=== PATIENT | female | born 1970 | race Caucasian/White ===

== ENCOUNTER 2018-11-27 10:00 | Inpatient (IN) | payer OTHER ==
[~2018-11-27] VITALS: Ht 162.6 cm; Wt 38.6 kg
[~2018-11-27 10:00] MED LIST: CLONAZEPAM0.5 MG PO; CLONAZEPAM1 MG PO; COLACE100 MG PO; Colace 100MG PO; DEMEROL; NEURONTIN; NEURONTIN PO; NEXIUM; NORCO 10-325 TA1 TAB PO; ORPH100T PO; PHENERGAN25 MG; Pepcid 20 MG TABLET PO; TYLENOL-CODEINE1 TAB PO; Zolpidem Tartrate 10MG PO
[2018-11-29] MEDS ORDERED: WELLBUTRIN SR150 MG PO (13:21)
[2018-11-29] MEDS ORDERED: SIMPONI100 MG/11 (13:22)
[2018-11-29] MEDS ORDERED: MINIVELLE1 EAC1 TD (13:22)
[2018-11-29] MEDS ORDERED: PHENERGAN25 MG PO (13:23)
[2018-12-07] MEDS ORDERED: NEURONTIN800 MG PO (11:55)
[2019-01-10] MEDS ORDERED: LIDODERM1 EACH TOP (12:48)
[2019-01-10] MEDS ORDERED: NEURONTIN300 MG PO (12:48)
[2019-01-10] MEDS ORDERED: PROMETHAZI25 MG/1 M1 IM (12:50)
[2019-01-10] MEDS ORDERED: PHENERGAN25 MG/1 M1 IM (12:52)
== END 2019-01-10 15:07 | disposition home or self-care (01) | DRG 330 ==
LOC: SURH 12-06 07:00 → SURG 12-06 07:26 → O/R 12-06 07:26 → SURH 12-06 11:45 → SURG 12-06 17:03 → SURH 12-07 14:29
PROVIDERS: ADMIT Surgery
PROC: 0DHA3UZ Insertion of Feeding Device into Jejunum, Percutaneous Approach (ICD-10-PCS; 2018-12-06)
PROC: 0DNA4ZZ Release Jejunum, Percutaneous Endoscopic Approach (ICD-10-PCS; 2018-12-06)
PROC: 3E0436Z Introduction of Nutritional Substance into Central Vein, Percutaneous Approach (ICD-10-PCS; 2018-12-09)
PROC: BD13ZZZ Fluoroscopy of Small Bowel (ICD-10-PCS; 2018-12-21)
PROC: B246ZZZ Ultrasonography of Right and Left Heart (ICD-10-PCS; 2018-12-26)
PROC: 0D1A4ZA Bypass Jejunum to Jejunum, Percutaneous Endoscopic Approach (ICD-10-PCS; principal; 2019-01-01 18:00)
DX: K56.51 Intestinal adhesions [bands], with partial obstruction (principal); N39.0 Urinary tract infection, site not specified; E46 Unspecified protein-calorie malnutrition; R78.81 Bacteremia; R65.10 Systemic inflammatory response syndrome (SIRS) of non-infectious origin without acute organ dysfunction; D62 Acute posthemorrhagic anemia; R11.2 Nausea with vomiting, unspecified; B96.89 Other specified bacterial agents as the cause of diseases classified elsewhere; F41.8 Other specified anxiety disorders; R50.82 Postprocedural fever; E87.6 Hypokalemia; K22.4 Dyskinesia of esophagus; R09.02 Hypoxemia; T80.89XA Other complications following infusion, transfusion and therapeutic injection, initial encounter; B95.7 Other staphylococcus as the cause of diseases classified elsewhere; K21.9 Gastro-esophageal reflux disease without esophagitis; M51.16 Intervertebral disc disorders with radiculopathy, lumbar region; L40.8 Other psoriasis; M06.89 Other specified rheumatoid arthritis, multiple sites

== ENCOUNTER 2019-08-27 04:53 | Day surgery (SDC) | payer OTHER ==
[~2019-08-27 04:53] MED LIST changes: +CARAFATE1 GM/10 ML PO; +LIDODERM1 EACH TOP; +MINIVELLE1 EAC1 TD; +NEURONTIN300 MG PO; +NEURONTIN800 MG PO; +PHENERGAN25 MG PO; +PHENERGAN25 MG/1 M1 IM; +PRILOSEC2.5 MG PO; +PROMETHAZI25 MG/1 M1 IM; +SIMPONI100 MG/11; +WELLBUTRIN SR150 MG PO
[2019-08-27] MEDS ORDERED: ULTRACET PO (08:44)
[2019-08-27] MEDS ORDERED: BACTRIM DS TAB1 EACH PO (08:45)
== END 2019-08-27 10:50 | disposition home or self-care (01) ==
LOC: CIR.AMB 04:53
DX: Z43.4 Encounter for attention to other artificial openings of digestive tract (principal)

== ENCOUNTER 2025-06-12 19:41 | Inpatient (IN) | payer OTHER ==
[~2025-06-12] VITALS: Ht 162.6 cm; Wt 40.8 kg
[~2025-06-12 19:41] MED LIST changes: +BACTRIM DS TAB1 EACH PO; +ULTRACET PO
--- NOTE | 2025-06-12 19:56 | NUR ---
PTE ALERTA Y ORIENTADA X3, SE AIDAN S/V. PTE REFIERE QUE PRESENTA VOMITOS, DIARREAS Y DOLOR ABDOMINAL. PTE REFIERE QUE SE COMUNICO CON [place] DR. ROSA VU QUIEN LE ORDENO QUE FUERA A ER. PTE REFIERE QUE IBA A TENER CIRUGIA EL 6 DE JUNUB. SE UBICA PTE EN MOLLY AREA DE OBSERVACION.
[2025-06-12] MEDS ORDERED: ONDANSETRON HCL 2 MG/ML VIAL IV ONE (20:15)
[2025-06-12] MEDS ORDERED: METHYLPREDNISOLONE SOD SUCC 40 MG VIAL IV ONE (20:15)
[2025-06-12] MEDS ORDERED: FAMOtidine 10 MG/ML (4ML VIAL) IV ONE (20:15)
[2025-06-12] MEDS ORDERED: MORPHINE SULFATE 4 MG/ML CARTRIDGE IV ONE ×2 (20:15→21:00)
[2025-06-12] MEDS ORDERED: 0.9 % SODIUM CHLORIDE 1,000 ML IV ONE (20:15)
[2025-06-12] MEDS ORDERED: DIPHENHYDRAMINE HCL 50 MG/ML VIAL 1ML IV ONE (20:15)
[2025-06-12] MEDS ORDERED: DIPHENHYDRAMINE HCL 50 MG/ML VIAL 1ML ONE (20:41)
[2025-06-12] MEDS ORDERED: ONDANSETRON HCL 2 MG/ML VIAL ONE (20:41)
[2025-06-12] MEDS ORDERED: METHYLPREDNISOLONE SOD SUCC 40 MG VIAL ONE (20:41)
[2025-06-12] MEDS ORDERED: FAMOTIDINE/PF 20 MG/2 ML VIAL ONE (20:42)
--- NOTE | 2025-06-12 21:04 | NUR ---
SE ORIENTA PTE SOBRE TRATAMIENTO MEDICO Y SE EJECUTA EN [place] TOTALIDAD
[2025-06-12 21:18] LABS: INR 0.99
[2025-06-12 21:32] LABS: URINE APPEARANCE Clear; URINE BILIRRUBIN Negative (NEGATIVE); URINE BLOOD Moderate; URINE COLOR Yellow; URINE GLUCOSE Negative (NEGATIVE); URINE KETONE 15 (NEGATIVE); URINE LEUKOCYTE Negative; URINE NITRATE Negative; URINE PROTEIN Negative (NEGATIVE); URINE UROBILINOGEN 1.0 E.U./dl
[2025-06-12 21:33] LABS: ALT/SGPT 19.0 U/L (12-78); AST/SGOT 21.0 U/L (15-37); BILIRUBIN TOTAL 2.04 mg/dL (0.3-1.2); BUN CREA RATIO 20.0 (7.0-25.0); CREATININE SERUM 0.59 mg/dL (0.55-1.02); GFR 105.82; GLOBULINA 2.9 G/DL (2.4-3.5); GLUCOSE FASTING 95.0 mg/dL (65-100); OSMOLALITY SERUM 285.0 MOSM/KG (275-295)
[2025-06-12 21:36] LABS: URINE BACTERIA 1135.0 uL (0.0-1933); URINE EPITHELIAL CELLS 20.4 uL (0.0-38.8); URINE RBC 120.4 uL (0.0-20.8); URINE WBC 10.0 uL (0.0-23.2)
[2025-06-12 22:13] LABS: URINE CAST 0.00 uL (0.0-1.40)
[2025-06-12 22:16] LABS: BASO % 0.7 % (0.1-1.2); EOS # 0.08 (0.04-0.54); EOS % 1.5 % (0.7-7.0); LYMPH # 2.02 (1.18-3.74); LYMPH % 37.0 % (19.3-53.1); MEAN PLATELET VOLUME 10.20 fl (9.4-12.4); MONO # 0.43 (0.24-0.82); MONO % 7.9 % (4.7-12.5); NEUT # 2.88 (1.56-6.13); NEUT % 52.7 % (34.0-71.1); RED CELL DISTRIBUTION WIDTH 11.9 % (11.6-14.4)
[2025-06-12] MEDS ORDERED: MORPHINE SULFATE 4 MG/ML CARTRIDGE IV PRN (23:45)
[2025-06-12] MEDS ORDERED: 0.9 % SODIUM CHLORIDE 1,000 ML IV SCH (23:45)
[2025-06-13] MEDS ORDERED: PIPERACILLIN/TAZOBACTAM SODIUM 3.375 GM VIAL IV SCH
[2025-06-13] MEDS ORDERED: DIPHENHYDRAMINE HCL 50 MG/ML VIAL 1ML IV ONE (08:00)
[2025-06-13] MEDS ORDERED: DIATRIZOATE MEGLUMINE, SODIUM 30 ML BOTTLE PO ONE (08:00)
[2025-06-13 08:25] VITALS: BP 102/68; O2SAT 96
[2025-06-13] MEDS ORDERED: FAMOtidine 10 MG/ML (4ML VIAL) IV SCH (09:00)
[2025-06-13] MEDS ORDERED: DIATRIZOATE MEGLUMINE, SODIUM 30 ML BOTTLE PO NR (10:00)
[2025-06-13] MEDS ORDERED: DEXTROSE 50 % IN WATER 0.5 G/ML VIAL IV PRN (15:30)
[2025-06-13] MEDS ORDERED: RINGERS SOLUTION,LACTATED 1,000 ML IV SCH (15:30)
[2025-06-13] MEDS ORDERED: ONDANSETRON HCL 2 MG/ML VIAL IV PRN (15:30)
[2025-06-13 16:00] VITALS: BP 113/80; O2SAT 96
[2025-06-13] MEDS ORDERED: AA 4.25%/CAL/LYTES/DEXT 5% 1,000 ML PERIFERAL SCH (17:00)
[2025-06-13 19:08] LABS: BUN CREA RATIO 18.0 (7.0-25.0); CHOL HDL RATIO 2.1 (0-5.0); CREATININE SERUM 0.51 mg/dL (0.55-1.02); GFR 125.2; GLUCOSE FASTING 89.0 mg/dL (65-100); HDL 76.0 mg/dl (40-60); LDL 71.0 mg/dl (0-130); OSMOLALITY SERUM 285.0 MOSM/KG (275-295); VLDL 13.0 (0-39)
[2025-06-13] MEDS ORDERED: FAT EMULSIONS 250 ML IV SCH (21:00)
[2025-06-14 02:51] VITALS: BP 91/58; O2SAT 95
[2025-06-14 08:00] VITALS: BP 99/64; O2SAT 96
[2025-06-14] MEDS ORDERED: FAMOTIDINE/PF 20 MG/2 ML VIAL IV SCH (09:00)
[2025-06-14 16:40] VITALS: BP 107/70; O2SAT 96
[2025-06-14] MEDS ORDERED: ENOXAPARIN SODIUM 40 MG/0.4 ML SYRINGE SUBCUTANEO SCH (17:00)
[2025-06-14 19:53] LABS: BASO % 0.8 % (0.1-1.2); EOS # 0.01 (0.04-0.54); EOS % 0.2 % (0.7-7.0); LYMPH # 0.84 (1.18-3.74); LYMPH % 15.8 % (19.3-53.1); MEAN PLATELET VOLUME 10.40 fl (9.4-12.4); MONO # 0.29 (0.24-0.82); MONO % 5.4 % (4.7-12.5); NEUT # 4.14 (1.56-6.13); NEUT % 77.6 % (34.0-71.1); RED CELL DISTRIBUTION WIDTH 11.9 % (11.6-14.4)
[2025-06-14 20:17] LABS: BUN CREA RATIO 23.0 (7.0-25.0); CREATININE SERUM 0.4 mg/dL (0.55-1.02); GFR 165.71; GLUCOSE FASTING 70.0 mg/dL (65-100); OSMOLALITY SERUM 282.0 MOSM/KG (275-295)
[2025-06-14] MEDS ORDERED: PROMETHAZINE HCL 25 MG/ML AMPUL IV PRN (21:45)
[2025-06-14] MEDS ORDERED: METOCLOPRAMIDE HCL 5 MG/ML VIAL IV ONE (21:45)
[2025-06-15 01:20] VITALS: BP 107/76; O2SAT 97
[2025-06-15 07:26] LABS: BASO % 0.6 % (0.1-1.2); EOS # 0.09 (0.04-0.54); EOS % 1.7 % (0.7-7.0); LYMPH # 1.56 (1.18-3.74); LYMPH % 28.7 % (19.3-53.1); MEAN PLATELET VOLUME 11.70 fl (9.4-12.4); MONO # 0.49 (0.24-0.82); MONO % 9.0 % (4.7-12.5); NEUT # 3.25 (1.56-6.13); NEUT % 59.8 % (34.0-71.1); RED CELL DISTRIBUTION WIDTH 11.5 % (11.6-14.4)
[2025-06-15 08:00] VITALS: BP 110/71; O2SAT 99
[2025-06-15 08:02] LABS: ALT/SGPT 17.0 U/L (12-78); AST/SGOT 15.0 U/L (15-37); BILIRUBIN TOTAL 1.68 mg/dL (0.3-1.2); BUN CREA RATIO 23.0 (7.0-25.0); CREATININE SERUM 0.44 mg/dL (0.55-1.02); GFR 148.46; GLOBULINA 2.5 G/DL (2.4-3.5); GLUCOSE FASTING 115.0 mg/dL (65-100); OSMOLALITY SERUM 279.0 MOSM/KG (275-295)
[2025-06-15] MEDS ORDERED: ENOXAPARIN SODIUM 40 MG/0.4 ML SYRINGE SUBCUTANEO SCH (09:00)
[2025-06-15 17:22] VITALS: BP 111/72; O2SAT 98
[2025-06-15] MEDS ORDERED: MORPHINE SULFATE 4 MG/ML CARTRIDGE IV PRN (20:30)
[2025-06-16 01:48] VITALS: BP 105/55; O2SAT 99
[2025-06-16 08:18] LABS: BASO % 1.0 % (0.1-1.2); LYMPH % 27.1 % (19.3-53.1)
[2025-06-16 08:30] LABS: EOS # 0.24 (0.04-0.54); EOS % 4.8 % (0.7-7.0); LYMPH # 1.36 (1.18-3.74); MEAN PLATELET VOLUME 10.60 fl (9.4-12.4); MONO # 0.48 (0.24-0.82); MONO % 9.6 % (4.7-12.5); NEUT # 2.88 (1.56-6.13); NEUT % 57.3 % (34.0-71.1); RED CELL DISTRIBUTION WIDTH 11.5 % (11.6-14.4)
[2025-06-16 08:34] VITALS: BP 103/64; O2SAT 97
[2025-06-16 08:51] LABS: BUN CREA RATIO 27.0 (7.0-25.0); CREATININE SERUM 0.41 mg/dL (0.55-1.02); GFR 161.06; GLUCOSE FASTING 90.0 mg/dL (65-100); OSMOLALITY SERUM 280.0 MOSM/KG (275-295)
[2025-06-16 16:00] VITALS: BP 118/76; O2SAT 100
[2025-06-17 01:20] VITALS: BP 101/66; O2SAT 98
[2025-06-17] MEDS ORDERED: CEFAZOLIN SODIUM 1,000 MG VIAL IV SCH (06:00)
[2025-06-17] MEDS ORDERED: METRONIDAZOLE/SODIUM CHLORIDE 500 MG/100 ML PIGGYBACK IV SCH (06:00)
[2025-06-17 06:09] LABS: BASO % 0.8 % (0.1-1.2); EOS # 0.40 (0.04-0.54); EOS % 8.5 % (0.7-7.0); LYMPH # 1.34 (1.18-3.74); LYMPH % 28.4 % (19.3-53.1); MEAN PLATELET VOLUME 10.50 fl (9.4-12.4); MONO # 0.50 (0.24-0.82); MONO % 10.6 % (4.7-12.5); NEUT # 2.43 (1.56-6.13); NEUT % 51.5 % (34.0-71.1); RED CELL DISTRIBUTION WIDTH 11.5 % (11.6-14.4)
[2025-06-17 06:56] LABS: ALT/SGPT 16.0 U/L (12-78); AST/SGOT 14.0 U/L (15-37); BILIRUBIN TOTAL 1.24 mg/dL (0.3-1.2); BILIRUBIN,CONJUGATED 0.27 mg/dL (0.0-0.2); BUN CREA RATIO 24.0 (7.0-25.0); CHOL HDL RATIO 2.3 (0-5.0); CREATININE SERUM 0.41 mg/dL (0.55-1.02); GFR 161.06; GLOBULINA 2.9 G/DL (2.4-3.5); GLUCOSE FASTING 87.0 mg/dL (65-100); HDL 66.0 mg/dl (40-60); LDL 68.0 mg/dl (0-130); OSMOLALITY SERUM 282.0 MOSM/KG (275-295); VLDL 16.0 (0-39)
[2025-06-17 08:00] VITALS: BP 112/70; O2SAT 94
[2025-06-17 09:41] LABS: UREA CLEARANCE 22.4 ML/MIN
[2025-06-17] MEDS ORDERED: SUGAMMADEX SODIUM 200 MG/2 ML VIAL IV ONE (19:32)
[2025-06-17] MEDS ORDERED: FAMOTIDINE/PF 20 MG/2 ML VIAL ONE (21:41)
[2025-06-17 22:00] VITALS: BP 113/70; O2SAT 96
[2025-06-18 00:36] VITALS: BP 119/67; O2SAT 96
[2025-06-18] MEDS ORDERED: MORPHINE SULFATE 4 MG/ML CARTRIDGE IV PRN (00:45)
[2025-06-18] MEDS ORDERED: METOCLOPRAMIDE HCL 10 MG in DEXTROSE 5 % IN WATER 50 ML IV SCH (09:00)
[2025-06-18 09:10] VITALS: BP 111/74; O2SAT 97
[2025-06-18 13:20] LABS: BASO % 0.7 % (0.1-1.2); EOS # 0.41 (0.04-0.54); EOS % 6.0 % (0.7-7.0); LYMPH # 1.30 (1.18-3.74); LYMPH % 19.1 % (19.3-53.1); MEAN PLATELET VOLUME 11.30 fl (9.4-12.4); MONO # 0.59 (0.24-0.82); MONO % 8.7 % (4.7-12.5); NEUT # 4.44 (1.56-6.13); NEUT % 65.2 % (34.0-71.1); RED CELL DISTRIBUTION WIDTH 11.6 % (11.6-14.4)
[2025-06-18 14:02] LABS: BUN CREA RATIO 47.0 (7.0-25.0); CREATININE SERUM 0.34 mg/dL (0.55-1.02); GFR 199.9; GLUCOSE FASTING 96.0 mg/dL (65-100); OSMOLALITY SERUM 279.0 MOSM/KG (275-295)
[2025-06-18 16:00] VITALS: BP 99/65; O2SAT 97
[2025-06-19 00:40] VITALS: BP 107/64; O2SAT 97
[2025-06-19 08:00] VITALS: BP 97/64; O2SAT 97
[2025-06-19] MEDS ORDERED: AMINO ACIDS/PROTEIN HYDROLYS 30 ML BLIST.PACK PO SCH (09:00)
[2025-06-19 10:05] LABS: BASO % 0.5 % (0.1-1.2); EOS # 0.32 (0.04-0.54); EOS % 4.8 % (0.7-7.0); LYMPH # 0.97 (1.18-3.74); LYMPH % 14.7 % (19.3-53.1); MEAN PLATELET VOLUME 10.80 fl (9.4-12.4); MONO # 0.54 (0.24-0.82); MONO % 8.2 % (4.7-12.5); NEUT # 4.75 (1.56-6.13); NEUT % 71.6 % (34.0-71.1); RED CELL DISTRIBUTION WIDTH 11.5 % (11.6-14.4)
[2025-06-19 10:57] LABS: BUN CREA RATIO 24.0 (7.0-25.0); CREATININE SERUM 0.45 mg/dL (0.55-1.02); GFR 144.65; GLUCOSE FASTING 123.0 mg/dL (65-100); OSMOLALITY SERUM 280.0 MOSM/KG (275-295)
[2025-06-19 18:28] VITALS: BP 96/64; O2SAT 97
[2025-06-20 01:29] VITALS: BP 108/53; O2SAT 100
[2025-06-20 09:16] LABS: BASO % 0.8 % (0.1-1.2); EOS # 0.35 (0.04-0.54); EOS % 9.4 % (0.7-7.0); LYMPH # 0.92 (1.18-3.74); LYMPH % 24.7 % (19.3-53.1); MEAN PLATELET VOLUME 11.10 fl (9.4-12.4); MONO # 0.38 (0.24-0.82); MONO % 10.2 % (4.7-12.5); NEUT # 2.04 (1.56-6.13); NEUT % 54.6 % (34.0-71.1); RED CELL DISTRIBUTION WIDTH 11.6 % (11.6-14.4)
[2025-06-20 09:54] LABS: BUN CREA RATIO 31.0 (7.0-25.0); CREATININE SERUM 0.36 mg/dL (0.55-1.02); GFR 187.14; GLUCOSE FASTING 95.0 mg/dL (65-100); OSMOLALITY SERUM 280.0 MOSM/KG (275-295)
[2025-06-20 11:10] VITALS: BP 95/66; O2SAT 97
[2025-06-20 16:00] VITALS: BP 89/61; O2SAT 98
[2025-06-20 19:01] VITALS: BP 93/62; O2SAT 97
[2025-06-21] MEDS ORDERED: MORPHINE SULFATE 4 MG/ML CARTRIDGE IV PRN (01:30)
[2025-06-21 02:01] VITALS: BP 104/67; O2SAT 98
[2025-06-21 08:04] LABS: BASO % 0.9 % (0.1-1.2); EOS # 0.41 (0.04-0.54); EOS % 9.1 % (0.7-7.0); LYMPH # 1.58 (1.18-3.74); LYMPH % 34.9 % (19.3-53.1); MEAN PLATELET VOLUME 11.30 fl (9.4-12.4); MONO # 0.47 (0.24-0.82); MONO % 10.4 % (4.7-12.5); NEUT # 2.02 (1.56-6.13); NEUT % 44.5 % (34.0-71.1); RED CELL DISTRIBUTION WIDTH 11.7 % (11.6-14.4)
[2025-06-21] MEDS ORDERED: LEVSIN/SL0.125 MG SL (08:29)
[2025-06-21] MEDS ORDERED: INTESTINEX680 M1 PO (08:30)
[2025-06-21] MEDS ORDERED: METOCLOPRAMIDE10 MG PO (08:30)
[2025-06-21 08:51] LABS: ALT/SGPT 25.0 U/L (12-78); AST/SGOT 13.0 U/L (15-37); BILIRUBIN TOTAL 1.12 mg/dL (0.3-1.2); BUN CREA RATIO 31.0 (7.0-25.0); CREATININE SERUM 0.36 mg/dL (0.55-1.02); GFR 187.14; GLOBULINA 2.7 G/DL (2.4-3.5); GLUCOSE FASTING 82.0 mg/dL (65-100); OSMOLALITY SERUM 282.0 MOSM/KG (275-295)
[2025-06-21 09:05] VITALS: BP 91/64; O2SAT 97
== END 2025-06-21 13:02 | disposition home or self-care (01) | DRG 331 ==
LOC: ER 19:41 → SURH 23:44
PROVIDERS: General Practice; Internal Medicine; Internal Medicine Geriatric Medicine; ADMIT Surgery; ATTEND Surgery
PROC: BW21YZZ Computerized Tomography (CT Scan) of Abdomen and Pelvis using Other Contrast (ICD-10-PCS; 2025-06-12)
PROC: BW21YZZ Computerized Tomography (CT Scan) of Abdomen and Pelvis using Other Contrast (ICD-10-PCS; 2025-06-13)
PROC: 02HV33Z Insertion of Infusion Device into Superior Vena Cava, Percutaneous Approach (ICD-10-PCS; 2025-06-14)
PROC: 0DQ84ZZ Repair Small Intestine, Percutaneous Endoscopic Approach (ICD-10-PCS; principal; 2025-06-17 17:30)
DX: K56.600 Partial intestinal obstruction, unspecified as to cause (principal); F43.22 Adjustment disorder with anxiety